=== PATIENT | female | born 1995 | race African-American/Black ===

== ENCOUNTER 2017-04-09 10:47 | Emergency (ER) | payer OTHER ==
[~2017-04-09] VITALS: Ht 160 cm; Wt 64.0 kg
[2017-04-09 10:47] VITALS: BP 127/59; PULSE 88; RESP 16; TEMP 98.9; O2SAT 98
[2017-04-09] MEDS ORDERED: PENI500T PO (11:18)
--- NOTE | 2017-04-09 11:36 | PD ---
HPI . Pharyngitis with exudate Chief Complaint: ENT Complaint Time Seen by Provider: 11:15 Travel History International Travel<30 days: No Contact w/Intl Traveler<30days: No Traveled to known affect area: No History of Present Illness HPI 21-year-old female presents to the emergency department for evaluation of sore throat that started last night. Patient was treated for strep throat approximately 6 weeks ago in [place]. The pharyngitis resolved at that time a treatment but returned again last night. Patient is denying any shortness of breath, chest pain, cough, congestion, fevers, dysuria, abdominal pain, nausea, vomiting, diarrhea or lightheadedness. PFSH Past Medical History Medical History: Denies Significant Hx Tetanus Vaccination: > 5 Years Influenza Vaccination: No ?: Not LMP: 04/09/17 Past Surgical History Surgical History: No Previous Surgery Social History Alcohol Use: No Tobacco Use: No Substance Use: Yes (marijuana) Allergies-Medications (Allergen,Severity, Reaction): Coded Allergies: No Known Allergies (Unverified , 04/09/17) Reported Meds & Prescriptions Reported Meds & Active Scripts Active No Active Prescriptions or Reported Medications Review of Systems Except as stated in HPI: all other systems reviewed are Neg HENT: Positive: Sore Throat Physical Exam Narrative GENERAL: Well-developed well-nourished 21-year-old female in no acute distress SKIN: Focused skin assessment warm/dry. HEAD: Atraumatic. Normocephalic. EYES: Pupils equal and round. No scleral icterus. No injection or drainage. ENT: No nasal bleeding or discharge. Mucous membranes pink and moist. MOUTH: Mucous membranes moist, no lesions, tongue and gums appear normal. THROAT: Tonsillar hypertrophy with white patchy exudate noted. Airway is patent. Uvula midline. NECK: Trachea midline. No JVD. Anterior cervical lymph nodes mildly swollen and tender. CARDIOVASCULAR: Regular rate and rhythm. No murmur appreciated. RESPIRATORY: No accessory muscle use. Clear to auscultation. Breath sounds equal bilaterally. MUSCULOSKELETAL: No obvious deformities. No clubbing. No cyanosis. No edema. NEUROLOGICAL: Awake and alert. No obvious cranial nerve deficits. Motor grossly within normal limits. Normal speech. PSYCHIATRIC: Appropriate mood and affect; insight and judgment normal. Data Data Last Documented VS Vital Signs Date Time Temp Pulse Resp B/P (MAP) Pulse Ox O2 Delivery O2 Flow Rate FiO2 04/09/17 10:47 98.9 88 16 127/59 (81) 98 Room Air MDM Medical Decision Making Medical Screen Exam Complete: Yes Emergency Medical Condition: Yes Medical Record Reviewed: Yes Differential Diagnosis Differential diagnoses include but are not limited to viral pharyngitis, bacterial pharyngitis, upper respiratory infection, tonsillar abscess Narrative Course 21-year-old well-nourished well-developed developed female in no acute distress presents to the emergency department for evaluation of sore throat. The sore throat started again last night. She was treated for strep throat approximately 6 weeks ago in [place] and the symptoms resolved at that time. There is tonsillar hypertrophy noted with white patchy exudate. The uvula is midline and airway is patent. Patient denies any fever, chest pain, cough, shortness breath, malaise, chills, vomiting, nausea, vomiting, diarrhea or lightheadedness. Patient Centor score was 3. Patient will be discharged home with a diagnosis of strep pharyngitis and a prescription for penicillin VK. Instructions to take [id number] Motrin for pain or fever will be provided. Patient will be given instructions for supportive care such as to gargle salt water, stay hydrated, get enough rest and follow-up with the clinic on her campus at [facility]. Diagnosis Primary Impression: Acute bacterial pharyngitis Referrals: Primary Care Physician Patient Instructions: General Instructions, Strep Throat (ED) Departure Forms: Tests/Procedures Additional Instructions: Take antibiotic as directed until course completed. Stay hydrated by drinking enough water. Ensure you get enough rest while your body is fighting this infection. Can gargle salt water to help with pain and inflammation. Take Motrin or Tylenol as needed for pain or fever. Follow up with your primary care physician or your clinic on campus at [facility]. Return to the emergency department with any sudden changes in condition or emergent problems. Med/Other Pt SpecificInfo: Prescription(s) given Scripts Penicillin V Potassium (Penicillin V Potassium) 500 Mg Tab 500 MG PO QID for Infection for 10 Days, TAB 0 Refills Prov: Brittany Johnson 04/09/17 Disposition: 01 DISCHARGE HOME Condition: Stable Brittany Johnson Apr 09, 2017 11:36
== END 2017-04-09 12:25 | disposition home or self-care (01) ==
LOC: NEPD 10:47
DX: J02.9 Acute pharyngitis, unspecified (principal)
CPT/HCPCS: 99283

== ENCOUNTER 2017-08-01 11:20 | Emergency (ER) | payer OTHER ==
[~2017-08-01] VITALS: Ht 160 cm; Wt 60.9 kg
[~2017-08-01 11:20] MED LIST: PENI500T PO
[2017-08-01 11:22] VITALS: BP 139/84; PULSE 92; RESP 14; TEMP 98.4; O2SAT 98
[2017-08-01] MEDS ORDERED: PENI500T PO (13:31)
--- NOTE | 2017-08-01 13:34 | PD ---
HPI Chief Complaint: ENT Complaint Time Seen by Provider: 13:13 Travel History International Travel<30 days: No Contact w/Intl Traveler<30days: No Traveled to known affect area: No History of Present Illness HPI The patient was seen and examined in the presence of the nurse. Patient complains of sore throat. Duration 3 days. Severity is moderate. Denies fever. PFSH Past Medical History ?: Not LMP: 07/17/17 Social History Alcohol Use: No Tobacco Use: No Substance Use: Yes (marijuana) Allergies-Medications (Allergen,Severity, Reaction): Coded Allergies: No Known Allergies (Unverified Adverse Reaction, Unknown, 08/01/17) Reported Meds & Prescriptions Reported Meds & Active Scripts Active Penicillin V Potassium 500 Mg Tab 500 Mg PO QID 10 Days Review of Systems General / Constitutional: No: Fever HENT: Positive: Sore Throat Cardiovascular: No: Chest Pain or Discomfort Respiratory: No: Shortness of Breath Gastrointestinal: No: Vomiting Physical Exam Narrative RESPIRATORY: Respiratory effort unlabored, no retractions or use of accessory muscles. Breath sounds are clear and symmetric. GASTROINTESTINAL: Abdomen soft, non-tender, nondistended. Positive bowel sounds. No hepato-splenomegaly, or palpable masses. No guarding. Throat: Both tonsils covered with exudate, uvula midline Data Data Last Documented VS Vital Signs Date Time Temp Pulse Resp B/P (MAP) Pulse Ox O2 Delivery O2 Flow Rate FiO2 08/01/17 13:24 08/01/17 11:22 98.4 92 14 98 MDM Medical Decision Making Medical Screen Exam Complete: Yes Emergency Medical Condition: Yes Medical Record Reviewed: Yes Differential Diagnosis Tonsillitis, pharyngitis , URI Narrative Course I have reviewed the patient's electronic medical record. Clinical suspicion for strep pharyngitis is high based on lack of viral symptoms and exam. 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 Penicillin prescribed Diagnosis Primary Impression: Tonsillitis with exudate Patient Instructions: General Instructions Departure Forms: Tests/Procedures Additional Instructions: The patient was advised to follow up with their physician and return if they worsen. Med/Other Pt SpecificInfo: Prescription(s) given Scripts Penicillin V Potassium (Penicillin V Potassium) 500 Mg Tab 500 MG PO QID for Infection for 10 Days, TAB 0 Refills Prov: Ricky Garza MD 08/01/17 Disposition: 01 DISCHARGE HOME Condition: Stable Ricky Garza MD Aug 01, 2017 13:34
== END 2017-08-01 13:45 | disposition home or self-care (01) ==
LOC: NEPD 11:20
DX: J03.90 Acute tonsillitis, unspecified (principal)
CPT/HCPCS: 99283

== ENCOUNTER 2017-08-18 10:40 | Emergency (ER) | payer SELFPAY ==
[~2017-08-18] VITALS: Ht 160 cm; Wt 62.0 kg
[2017-08-18 10:42] VITALS: BP 125/79; PULSE 80; RESP 17; TEMP 98.1; O2SAT 100
[2017-08-18] MEDS ORDERED: IBUP200C PO (10:51)
--- NOTE | 2017-08-18 11:06 | PD ---
HPI Chief Complaint: Oral / Dental Pain or Problem Time Seen by Provider: 10:51 Travel History International Travel<30 days: No Contact w/Intl Traveler<30days: No Traveled to known affect area: No History of Present Illness HPI 20-year-old female presents to the ED for evaluation of less than 24 hour history of 6/10 left-sided dental pain and left-sided facial swelling. Onset gradual. Patient endorses a cavity in the area. She denies fevers, chills, nausea, vomiting. She treated at home with ibuprofen last night with no improvement of symptoms. Also complains of redness and increased tearing of the left eye. She denies crusting or exposure to bacterial conjunctivitis. She endorses history of severe seasonal allergies, worsened since she moved to [place] from [place] for school. She is currently taking a daily oral antihistamine/decongestant. PFSH Past Medical History ?: Not LMP: 08/12/17 Social History Alcohol Use: No Tobacco Use: No Substance Use: Yes (marijuana) Allergies-Medications (Allergen,Severity, Reaction): Coded Allergies: No Known Allergies (Unverified Adverse Reaction, Unknown, 08/18/17) Reported Meds & Prescriptions Reported Meds & Active Scripts Active Ibuprofen 600 Mg Tab 600 Mg PO Q8H PRN Clindamycin (Clindamycin HCl) 150 Mg Cap 450 Mg PO Q8HR 7 Days Reported Ibuprofen 200 Mg Cap 200 Mg PO Q6H PRN Review of Systems Except as stated in HPI: all other systems reviewed are Neg Physical Exam Narrative GENERAL: Well-nourished, well-developed pleasant female in no acute distress. SKIN: Warm and dry. HEAD: Normocephalic. Atraumatic. EYES: No scleral icterus. PERRLA. EOMI. Right eye mildly injected, increased tearing. No crusting of the medial canthus. ENT: Pearly nunez tympanic membranes bilaterally. Nasal mucosa is moist. Oropharynx without erythema, edema or exudate. Tonsils 2+ bilaterally. DENTAL: No loose teeth. No malocclusion. Tooth #14 has a large dental caries to the gumline. The surrounding mucosa is tender, erythematous and mildly edematous. No drainable abscess noted. NECK: Supple, trachea midline. No JVD or lymphadenopathy. CARDIOVASCULAR: Regular rate and rhythm without murmurs, gallops, or rubs. No carotid bruits. 2+ DP and radial pulses bilaterally. RESPIRATORY: Breath sounds clear and equal bilaterally. No accessory muscle use. GASTROINTESTINAL: Abdomen soft, non-tender, nondistended. + Bowel sounds MUSCULOSKELETAL: No cyanosis, or edema. Full, active range of motion. Strength 5/5. Neurovascularly intact. BACK: Nontender without obvious deformity. No CVA tenderness. Data Data Last Documented VS Vital Signs Date Time Temp Pulse Resp B/P (MAP) Pulse Ox O2 Delivery O2 Flow Rate FiO2 08/18/17 10:42 98.1 80 17 125/79 (94) 100 MDM Medical Decision Making Medical Screen Exam Complete: Yes Emergency Medical Condition: Yes Differential Diagnosis Dental abscess versus dental caries versus allergic conjunctivitis versus bacterial conjunctivitis versus other Narrative Course 20-year-old female presents to the ED for evaluation of less than 24 hour history of 6/10 left-sided dental pain and left-sided facial swelling. Also complains of redness and increased tearing of the left eye. She denies crusting or exposure to bacterial conjunctivitis. She endorses history of seasonal allergies, worsened since she moved to [place] from [place] for school. She is currently taking a daily oral antihistamine/decongestant. Vitals reviewed. Physical exam reveals a nontoxic-appearing female in no acute distress. The left eye is injected with increased tearing. No crusting of the medial canthus noted. Tooth #14 is a large dental caries to the gumline. The surrounding mucosa is tender, erythematous, mildly edematous. No drainable abscess noted. She does have mild swelling of the left cheek. Tonsils are 2+ bilaterally. No exudates noted. This is dental abscess, dental caries and allergic conjunctivitis. Patient's prescribed 450mg clindamycin 3 times a day 7 days and 600 mg ibuprofen 3 times a day when necessary for pain. She is instructed to take medications as prescribed, consider using over-the- counter eyedrop with antihistamines, follow-up with the dentist and primary care provider. She was provided a list of dental resources in the community. She indicated understanding the instructions and was agreeable with the care plan. She is stable and discharged home. Diagnosis Primary Impression: Dental caries Additional Impressions: Dental abscess Allergic conjunctivitis Qualified Codes: H10.12 - Acute atopic conjunctivitis, left eye Referrals: Dentist Primary Care Physician Additional Instructions: Rest, hydrate. Begin antibiotics today and take them until every pill is gone. 600 mg ibuprofen up to 3 times per day as needed for dental pain Warm salt water gargles a few times a day by also help to improve your dental pain. Continue with daily antihistamine/decongestant as previously prescribed. Consider using antihistamine eyedrops such as Visine allergy as needed for eye redness and tearing. If yeast infection occurs treat with an OTC product as directed. These come in many forms including 1, 3 and 7 day treatment. All formulations are effective. Follow-up with the dentist and the primary care provider. Return to ED for any urgent or emergent medical condition. Med/Other Pt SpecificInfo: Prescription(s) given Scripts Ibuprofen (Ibuprofen) 600 Mg Tab 600 MG PO Q8H Y for PAIN, #15 TAB 0 Refills Prov: Baljinder Quinonez MD 08/18/17 Clindamycin (Clindamycin) 150 Mg Cap 450 MG PO Q8HR for Infection for 7 Days, CAP 0 Refills Prov: Baljinder Quinonez MD 08/18/17 Disposition: 01 DISCHARGE HOME Condition: Stable Meenu Carrasquillo Aug 18, 2017 11:06
[2017-08-18] MEDS ORDERED: CLIN150C14 PO (11:09)
[2017-08-18] MEDS ORDERED: IBUP-232 PO (11:09)
== END 2017-08-18 11:26 | disposition home or self-care (01) ==
LOC: NEPK 10:40
DX: K02.9 Dental caries, unspecified (principal); K04.7 Periapical abscess without sinus; H10.12 Acute atopic conjunctivitis, left eye; F12.90 Cannabis use, unspecified, uncomplicated
CPT/HCPCS: 99283